=== PATIENT | female | born 1950 | race Hispanic/Latino ===

== ENCOUNTER 2023-02-11 19:02 | Emergency (ER) | payer MEDICARE, OTHER ==
[~2023-02-11] VITALS: Ht 149.9 cm; Wt 72.6 kg
[2023-02-11 19:45] LABS: APPEARANCE,URINE CLEAR (CLEAR); BILIRUBIN,URINE NEGATIVE (NEGATIVE); COLOR,URINE COLORLESS (YELLOW); GLUCOSE, URINE (UA) NEGATIVE (NEGATIVE); KETONES,URINE NEGATIVE (NEGATIVE); LEUKOCYTE ESTERASE ,URINE NEGATIVE Leu/uL (NEGATIVE); NITRATE,URINE NEGATIVE (NEGATIVE); OCCULT BLOOD,URINE LARGE (NEGATIVE); PH,URINE 6.5 (5.0-8.0); PROTEIN,URINE NEGATIVE (NEGATIVE); UROBILINOGEN,URINE 0.2 mg/dL (0.2-1.0)
[2023-02-11 19:49] LABS: ADD UA MICROSCOPIC YES
[2023-02-11 19:50] LABS: BACTERIA,URINE RARE /HPF (None Seen); SQUAMOUS EPITHELIAL CELL,UR RARE /HPF (0-2); WBC,URINE 0-1 /HPF (0-1)
[2023-02-11] MEDS ORDERED: TAMS-1 PO (21:37)
[2023-02-11] MEDS ORDERED: IBUP-2070 PO (21:37)
[2023-02-11] MEDS ORDERED: IBUPROFEN 600 MG TABLET PO ONE (22:00)
[2023-02-11] MEDS ORDERED: TAMSULOSIN HCL 0.4 MG CAP.ER.24H PO ONE (22:00)
[2023-02-11 22:14] VITALS: BP 156/99; PULSE 89; RESP 18; O2SAT 99
== END 2023-02-11 22:22 | disposition home or self-care (01) ==
LOC: EDH 19:02
DX: N13.2 Hydronephrosis with renal and ureteral calculous obstruction (principal); K57.30 Diverticulosis of large intestine without perforation or abscess without bleeding; E78.00 Pure hypercholesterolemia, unspecified; I10 Essential (primary) hypertension
CPT/HCPCS: 74176; 81001

== ENCOUNTER → 2024-08-03 | Outpatient (CLI) | payer MEDICARE ==
[~2024-08-03] MED LIST: IBUP-2070 PO; TAMS-55 PO
--- NOTE | 2024-08-03 14:18 | HMCIMG ---
THYROID ULTRASOUND History: Multinodular goiter Comparison: July 22, 2023 Findings: Again, there is a simple cyst right aspect of the isthmus measuring 7 x 6 mm, stable. There is a hypoechoic nodule within the right thyroid lobe lower pole, 6 x 5 mm, stable. 2 other previously seen hypoechoic nodules of the right thyroid lower pole have resolved. The left side shows no nodules. Right lobe measures 2.4 x 1.1 x 1.1 cm. The left lobe measures 2.8 x 1.7 x 1 cm. The isthmus measures 4 mm. No fluid collections are seen. IMPRESSION: Stable benign findings.
== END | disposition home or self-care (01) ==
LOC: RAH 13:05
PROVIDERS: ATTEND Internal Medicine Endocrinology, Diabetes & Metabolism
DX: E04.2 Nontoxic multinodular goiter (principal)
CPT/HCPCS: 76536